=== PATIENT | male | born 1945 | race African-American/Black ===

== ENCOUNTER 2019-09-29 21:44 | Emergency (ER) | payer MEDICARE, BC ==
[~2019-09-29] VITALS: Ht 180.3 cm; Wt 95.0 kg
[~2019-09-29 21:44] MED LIST: ALLOPURINOL300 MG PO; AMOXICILLIN875 MG PO; ASPIRIN81 MG PO; AUGMENTIN875TAB PO; BRILINTA60 MG; CALCIUM + D600 MG PO; CARVEDILOL6.25 MG PO; CIPRO XR500 MG PO; COLCHICINE0.6 M2 PO; CRESTOR5 M1; DILAUDID 2MG2 MG/TA1 PO; DILAUDID 2MG2 MG/TAB PO; ECHINACEA HERB400 MG PO; EQL B-121000 MCG PO; FERROUS SULF325 M1 PO; FLEXERIL5 M1 PO; FLONASE NASAL50 MCG; FLUZONE SPLT1 M1 IM; GABAPENTIN300 MG PO; GLIMEPIRIDE4 MG PO; IRON27 MG PO; IRON325 MG OR; IRON325 MG PO; LISINOPRIL10 MG PO; LORTAB 7.5-3251 TAB PO; MEDROL DOSEPAK4 MG PO; METAN1 OR; METFORMIN500 M2 PO; METFORMIN500 MG OR; METFORMIN500 MG PO; MOBIC15 MG PO; NAPROSYN500 MG PO; OMEPRAZOLE40 MG PO; ONE DAILY FOR MEN 50 PO; PRANDIN1 MG PO; PRILOSEC40 MG PO; PROBENECID500 MG PO; PSEUDOEPHEDR30 MG PO; PX IRON27 MG PO; TIZANIDINE2 MG PO; TRAMADOL HCL50 MG PO; VITAMIN C500 M6 PO; ZESTRIL PO; ZPAK PO; ZYLOPRIM300 MG PO; [UNRECOGNIZED DRUG - REMARK]
[2019-09-29 22:59] LABS: ALBUMIN 3.9 g/dL (3.2-5.0); ALKALINE PHOSPHATASE 105 u/l (38-126); ANION GAP 12 (6-22 (CALC)); BILIRUBIN, TOTAL 0.5 mg/dL (0.0-1.4); BUN 21 mg/dL (8-23); BUN/CREATININE RATIO 11 (12-20 (CALC)); CARBON DIOXIDE 21 mmol/l (22-30); CHLORIDE 108 mmol/l (95-108); GFR 33 ML/MIN (>=60 (CALC)); GFR FOR AFR.AMER. 40 ML/MIN (>=60 (CALC)); POTASSIUM 4.3 mmol/l (3.5-5.1); SGOT/AST 23 u/l (19-48); SODIUM 137 mmol/l (137-146)
[2019-09-29 23:02] LABS: HEMOGLOBIN 10.3 g/dl (14.0-18.0); IMMATURE GRANULOCYTES 0.4 % (0.0-5.0); MEAN CELL VOLUME 87.5 fL CALC (80.0-100.0); MEAN CORPUSCULAR HGB 27.3 pG CALC (26.0-32.0); MEAN CORPUSCULAR HGB CONC 31.2 g/dL CAL (32.0-36.0); NEUT# 3.33 thou/uL (1.82-7.42); RED BLOOD COUNT 3.77 mill/uL (4.70-6.10); RED CELL DISTRI WIDTH 15.5 % (11.5-15.5)
[2019-09-29 23:11] LABS: MYOGLOBIN 202 ng/mL (0 - 121)
[2019-09-30 01:00] VITALS: BP 125/75
== END 2019-09-30 01:05 | disposition home or self-care (01) ==
LOC: ED 21:44
PROVIDERS: Emergency Medicine
DX: R53.1 Weakness (principal); I10 Essential (primary) hypertension